=== PATIENT | female | born 1950 | race Caucasian/White ===

== ENCOUNTER → 2021-01-28 12:24 | Outpatient (CLI) | payer BC, SELFPAY ==
--- NOTE | ~2021-01-28 | DEXA_ITS ---
Bone Density Report Name: Mariola Chávez Age: 70 Sex: Female Ethnicity: White Date of : 1950 Indication: postmenopausal; screening for osteoporosis; Referring Provider: EVIE MARADIAGA Study: Bone densitometry was performed. Exam Date: January 28, 2021 Accession number: [id number] Bone Density: Region BMD T-score Z-score Classification AP Spine (L1-L4) 1.099 0.5 2.5 Normal Femoral Neck (Left) 0.679 -1.5 0.2 Osteopenia Total Hip (Left) 0.833 -0.9 0.6 Normal Femoral Neck (Right) 0.688 -1.4 0.3 Osteopenia Total Hip (Right) 0.805 -1.1 0.4 Osteopenia Total Hip Mean 0.819 -1.0 0.5 Normal World Health Organization criteria for BMD impression classify patients as: Normal (T-score at or above -1.0), Osteopenia (T-score between -1.0 and -2.5), or Osteoporosis (T-score at or below -2.5). 10-year Fracture Risk(1): Major Osteoporotic Fracture 8.8% Hip Fracture 1.1% Reported Risk Factors: [place] (), Neck BMD=0.679, BMI=38.7 (1) FRAX(R) Version 3.08. Fracture probability calculated for an untreated patient. Fracture probability may be lower if the patient has received treatment. Clinical Information Provided by Patient: Patient maximum height was 62.5 Menopause Age: 52 No regular weight bearing exercise Drinks caffeinated beverages Onset of menses at age 11 Number of children 6 Impression: The patient has low bone mass, based on the Left Femoral Neck T-score. The patient has an estimated ten-year risk of hip fracture of 1.1% and an estimated ten-year risk of major fracture of 8.8%, based on the WHO FRAX algorithm. Discussion: BONE DENSITY IS LOW AT ONE OR MORE SKELETAL SITES. This patient's lowest T-score is low at one or more skeletal sites. It meets the World Health Organization's (WHO) criteria for ?low bone mass? (T-score between -1.0 and -2.5). The patient's 10-year risk of fracture as calculated by FRAX is less than the threshold where pharmacological therapy is recommended by the National Osteoporosis Foundation (NOF). However, all treatment decisions require clinical judgment and consideration of individual patient factors, including patient preferences, comorbidities, previous drug use, risk factors not captured in the FRAX model (e.g., frailty, falls, vitamin D deficiency, increased bone turnover, interval significant decline in bone density) and possible under or overestimation of fracture risk by FRAX. The patient should follow a healthful lifestyle (good nutrition with adequate calcium and vitamin D, and appropriate weight-bearing exercise). Follow-Up: Consider repeating this study in 2 to 3 years to reassess this patient's status, or sooner if there is some new clinical indication. Reported by: [facility] on 01/28/2021 1:01:00 PM.
--- NOTE | ~2021-01-28 | XR_ITS ---
EXAMINATION: XR chest 2V DATE: 01/28/2021 13:47 INDICATION: Dyspnea on exertion. TECHNIQUE: Frontal and lateral views of the chest were obtained. COMPARISON: None. FINDINGS: The chest demonstrates clear lungs without pneumonia, pleural effusion, or pneumothorax. Th e heart size is normal. IMPRESSION: 1. No acute cardiopulmonary disease. Reviewed, dictated and finalized at location B.
--- NOTE | ~2021-01-28 | MM_ITS ---
EXAMINATION: MM screening jayme BI w jeremiah HISTORY: Screening mammogram TECHNIQUE: Craniocaudal and mediolateral oblique 3-D tomosynthesis images were obtained and synthetic 2-D images were generated. CAD analysis was submitted and interpreted. COMPARISON: No prior mammogram is available for comparison at this institution. BREAST PARENCHYMAL COMPOSITION: The breasts are almost entirely fatty. FINDINGS: There is no evidence of suspicious mass, calcification, or architectural distortion to sugg est malignancy in either breast. IMPRESSION: 1. No mammographic evidence of malignancy. 2. Recommend routine screening mammography in one year. BI-RADS Category 1: Negative Reviewed, dictated and finalized at location A.
== END ==
PROVIDERS: PCP Family Medicine Adolescent Medicine; Visit Provider Family Medicine Adolescent Medicine
DX: Z12.31 Encounter for screening mammogram for malignant neoplasm of breast (principal); Z78.0 Asymptomatic menopausal state; R06.00 Dyspnea, unspecified
CPT/HCPCS: 71046; 77063; 77067; 77080

== ENCOUNTER 2023-04-05 10:10 | Outpatient (CLI) | payer BC, SELFPAY ==
--- NOTE | ~2023-04-05 | CT_ITS ---
CT Scan of the Chest without Contrast: Clinical Indication: Lung cancer screening, personal history of nicotine dependence Technique: Contiguous sections were acquired throughout the chest without intravenous contrast. Dose reduction technique was used on this scan by utilizing automated exposure control and iterative recon struction technique. The dose-length product (DLP) was 140.17 mGy-cm. Findings: There is no evidence of any significant mediastinal, hilar or axillary lymphadenopathy. The mediastin al soft tissues appear normal. There is no evidence of pleural or pericardial effusion. 4 mm right middle lobe pulmonary nodule present. There are several tiny nodules in the very inferior right upper lobe. Images through the upper abdomen reveal no abnormalities. Impression: Lung RADS 2: Benign appearance. 12 month follow-up screening CT advised. Reviewed, dictated and finalized at location . Impression: Lung RADS 2: Benign appearance. 12 month follow-up screening CT advised.
== END 2023-04-05 10:11 | disposition home or self-care (01) ==
LOC: ANHIMG 10:14
PROVIDERS: PCP Family Medicine Adolescent Medicine; Visit Provider Nurse Practitioner Family
DX: Z12.2 Encounter for screening for malignant neoplasm of respiratory organs (principal); Z87.891 Personal history of nicotine dependence
CPT/HCPCS: 71271

== ENCOUNTER 2023-05-26 10:38 | Outpatient (CLI) | payer BC, SELFPAY ==
--- NOTE | 2023-05-26 10:55 | EST_ITS ---
Patient Info Name: Mariola Chávez Age: 72 years : 1950 Gender: Female Ht: 62 in Wt: 199 lbs BSA: 2.03 m2 HR: 83 bpm BP: 143 / 72 mmHg Heart Rhythm: Sinus Rhythm Exam Date: 05/26/2023 11:06 AM Exam Location: [facility] Patient Status: Outpatient Admit Date: 05/26/2023 Staff Ordering Physician: Ofe Edmondson APRN Attending Provider: Ofe Edmondson APRN Exercise Technologist: Karis Tobar CT Exercise Physician: Chip Morelos DO Exam Type: CA stress test treadmill Study Info Indications R06.09 - Other forms of dyspnea A treadmill exercise stress test was performed. Summary 1. 1. Negative [facility] exercise stress test for ischemic ST changes by ECG criteria. 2. 2. Poor functional capacity, achieving 4.7 METs of workload. 3. 3. Hypertensive response to exercise. 4. 4. Appropriate HR response to exercise. 5. 5. Appropriate HR recovery at 1 minute post exercise. 6. 6. No imaging with stress testing. 7. 7. Patient informed of the above results. Protocol: [facility] ECG Details Stage: REST Duration (min): 6 min : 35 sec Speed (mph): 0.0 Grade (%): 0 HR (bpm): 88 SBP (mmHg): 143 DBP (mmHg): 72 METS: --- Stage: REST Duration (min): 7 min : 4 sec Speed (mph): 0.0 Grade (%): 0 HR (bpm): 90 SBP (mmHg): 143 DBP (mmHg): 72 METS: --- Stage: REST Duration (min): 7 min : 19 sec Speed (mph): 0.0 Grade (%): 0 HR (bpm): 90 SBP (mmHg): 143 DBP (mmHg): 72 METS: --- Stage: STAGE 1 Duration (min): 1 min : 0 sec Speed (mph): 1.7 Grade (%): 10 HR (bpm): 107 SBP (mmHg): 143 DBP (mmHg): 72 METS: --- Stage: STAGE 1 Duration (min): 2 min : 0 sec Speed (mph): 1.7 Grade (%): 10 HR (bpm): 120 SBP (mmHg): 143 DBP (mmHg): 72 METS: --- Stage: STAGE 1 Duration (min): 2 min : 53 sec Speed (mph): 1.7 Grade (%): 10 HR (bpm): 127 SBP (mmHg): 220 DBP (mmHg): 63 METS: --- Stage: RECOVERY Duration (min): 0 min : 6 sec Speed (mph): 1.5 Grade (%): 0 HR (bpm): 128 SBP (mmHg): 220 DBP (mmHg): 63 METS: --- Stage: RECOVERY Duration (min): 1 min : 6 sec Speed (mph): 0.0 Grade (%): 0 HR (bpm): 122 SBP (mmHg): 220 DBP (mmHg): 63 METS: --- Stage: RECOVERY Duration (min): 2 min : 6 sec Speed (mph): 0.0 Grade (%): 0 HR (bpm): 111 SBP (mmHg): 218 DBP (mmHg): 57 METS: --- Stage: RECOVERY Duration (min): 3 min : 6 sec Speed (mph): 0.0 Grade (%): 0 HR (bpm): 105 SBP (mmHg): 204 DBP (mmHg): 64 METS: --- Stage: RECOVERY Duration (min): 3 min : 23 sec Speed (mph): 0.0 Grade (%): 0 HR (bpm): 105 SBP (mmHg): 204 DBP (mmHg): 64 METS: --- Rest HR: 90 bpm Peak HR: 128 bpm Rest Sys BP: 143 mmHg Peak Sys BP: 220 mmHg Max Pred HR: 149 bpm % Max Pred HR: 86 % Target HR: 127 bpm Max RPP: 28,160 bpm*mmHg Manuel Score: -1 BP Response: Patient exhibited a hypertensive response with stress Termination Reason: Reached target heart rate or wor
== END 2023-05-26 10:39 | disposition home or self-care (01) ==
LOC: ANHCARD 10:40
PROVIDERS: PCP Family Medicine Adolescent Medicine; Visit Provider Nurse Practitioner Family
DX: R06.09 Other forms of dyspnea (principal); R03.0 Elevated blood-pressure reading, without diagnosis of hypertension
CPT/HCPCS: 93017

== ENCOUNTER 2023-07-29 12:46 | Outpatient (CLI) | payer BC, SELFPAY ==
--- NOTE | 2023-07-30 06:47 | P.PCNPFT_ITS ---
PFT Procedure Performed PFT Procedure Performed Spirometry with Pre/Post Bronchodilator Plethysmography (Lung Vol) Diffusing Cap (DLCO) Flow Vol Loop PFT Interpretation This is a pulmonary function test with pre and post-bronchodilator spirometry, plethysmography and diffusing capacity. The test was performed and results interpreted in accordance with the 2019 and 2005 ATS/ERS Task Force guidelines respectively using the Global Lung Function Initiative-2012 reference equations. Patient demonstrated good effort and cooperation. Reproducibility criteria were met. The quality of the pre bronchodilator spirometry maneuver was Grade A and post bronchodilator spirometry maneuver was Grade A. Findings: Spirometry: There is decreased maximal expiratory airflow at low lung volumes with concave expiratory flow tracing. The contour the inspiratory flow tracing is normal. The pre bronchodilator FVC is 2.19 L, 85% predicted. The pre bronchodilator FEV1 is 1.48 L, 74% predicted. The pre bronchodilator FEV1: FVC ratio 68%. The post bronchodilator FVC is 2.18 L, representing no change. The post bronchodilator FEV1 is 1.67 L, representing a 190 mL increase corresponding to a 13% increase. The post bronchodilator FEV1: FVC ratio is 77%. Plethysmography: The total lung capacity is 4.52 L, 96% predicted. The functional residual capacity is 2.72 L, 101% predicted. The residual volume is 2.30 L, 109% predicted. Diffusing capacity: The diffusing capacity unadjusted for hemoglobin and c arboxyhemoglobin is 11.7, 60% predicted. The diffusing capacity adjusted for alveolar volume is 3.40, 78% predicted. Impression: The spirometry is normal without evidence of an obstructive abnormality. There is no significant improvement after inhaling a single dose of albuterol as the absolute increase in post bronchodilator FEV1 was less than 200 mL. The lung volumes are normal. The diffusing capacity unadjusted for hemoglobin and carboxyhemoglobin is moderately decreased and normalizes when adjusted for alveolar volume. There are no prior studies for comparison
== END 2023-07-29 12:47 | disposition home or self-care (01) ==
PROVIDERS: PCP Family Medicine Adolescent Medicine; Visit Provider Nurse Practitioner Family
DX: R06.09 Other forms of dyspnea (principal)
CPT/HCPCS: 94060; 94726; 94729